=== PATIENT | male | born 1945 | race Caucasian/White ===

== ENCOUNTER 2019-03-22 07:04 | Inpatient (IN) ==
--- NOTE | 2019-03-15 13:15 | PAT Medication Instructions ---
Medication Instructions Date of Service March 15, 2019 Home Medications apixaban [Eliquis] 5 mg PO BID diltiazem HCl 300 mg PO QAM flecainide 100 mg PO Q12H ASK your prescriber and surgeon apixaban [Eliquis] 5 mg PO BID Take morning of surgery With a small sip of water, OTHERWISE NOTHING TO EAT OR DRINK AFTER MIDNIGHT: diltiazem HCl 300 mg PO QAM flecainide 100 mg PO Q12H Take evening before surgery flecainide 100 mg PO Q12H Other Notes If you have any questions please call us at [phone] or [phone] or [phone] or [phone]
--- NOTE | 2019-03-15 15:00 | Anesthesiology Consultation ---
Date of Service March 15, 2019 Assessment & Plan (1) Encounter for pre-operative examination: Note sent to nephro re: kidney function. Per response from Dr. Carroll, "Stable GFR, would proceed with surgery." Chart Review Chart Review: Acceptable Risk for Surgery and Patient seen in Pre Admission Testing Teaching & Discussion Instructed NPO after midnight before surgery, except medications with 15 cc of water. Medication instructions provided according to the PAT guidelines. ASA ASA3 Proposed Anesthesia Anesthesia Type: General Regional Regional Laterality: Right Site: Interscalene Anesthesia Line Insertion: Arterial line Risk / Benefits Reviewed With: PT / POA / Parent / Guardian, Accepts Plan and I nformed Consent Obtained History Surgery Operation Date: 03/22/19 10:05 Proposed Procedures p Right Total Shoulder Arthroplasty Arthrosurface, Biceps Tenodesis, Labral Debridement - Ba Escobar MD Height/Weight Height: 5 ft 11.5 in Weight: 85.5 kg Allergies Allergy/AdvReac Type Severity Reaction Status Date / Time No Known Allergies Allergy Verified 03/22/19 07:49 Medications Home Medications Medication Instructions Recorded Confirmed Last Taken apixaban [Eliquis] 5 mg PO BID 03/15/19 03/22/19 03/19/19 20:00 ascorbic acid (vitamin C) [Vitamin 1 g PO DAILY 03/15/19 03/22/19 03/15/19 08:00 C] astaxanthin 4 mg PO DAILY 03/15/19 03/22/19 03/15/19 08:00 cholecalciferol (vitamin D3) 2,000 unit PO DAILY 03/15/19 03/22/19 03/15/19 08:00 [Vitamin D3] coenzyme Q10 [CoQ-10] 100 mg PO DAILY 03/15/19 03/22/19 03/15/19 08:00 diltiazem HCl 300 mg PO QAM 03/15/19 03/22/19 03/22/19 07:00 flecainide 100 mg PO Q12H 03/15/19 03/22/19 03/22/19 07:00 garlic 500 mg PO DAILY 03/15/19 03/22/19 03/15/19 08:00 glucosamine-chondroitin [Osteo 2 tab PO TID 03/15/19 03/22/19 03/15/19 08:00 Bi-Flex] magnesium oxide 400 mg PO DAILY 03/15/19 03/22/19 03/15/19 08:00 multivitamin 1 tab PO DAILY 03/15/19 03/22/19 03/15/19 08:00 omega 4-yjq-dqf-fish oil [[place]-3] 1 cap PO DAILY 03/15/19 03/22/19 03/15/19 08:00 acetaminophen [Tylenol Extra 1,000 mg PO BID 03/22/19 03/22/19 03/21/19 20:00 Strength] Active Medications Generic Name Dose Route Start Last Admin Trade Name Freq PRN Reason Stop Dose Admin Sodium Chloride 1,000 mls @ 15 mls/hr 03/22/19 06:00 03/22/19 08:10 Nss 1000ml IV 03/23/19 05:59 15 mls/hr .Q24H PAVAN Administration NPO Date Last Intake of Fluids: 03/21/19 Time Last Intake of Fluids: 23:00 Date Last Intake of Solids: 03/21/19 Time Last Intake of Solids: 21:00 Past Medical History Medical History Atrial fibrillation S/P cardioversion upon discovery in 2008. Frequent PAF events noted in 2014, anticoagulation resumed. Follows with Dr. Brenda Busch/[facility] [place] [facility] Chronic kidney disease stage 3 - follows with band maker (Dr. 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 "No reason to close" per cardiology. Continues on Eliquis. Sleep apnea CPAP Exercise / Class Metabolic Activity III < 4 Walking/Shop/Light housework (denies CP or SOB with 1 FOS) Past Family History Family History Grandfather (Maternal) Family history of diabetes mellitus Father FHx: prostate cancer FHx: lung cancer heavy smoker Sister FHx: breast cancer Past Surgical History Surgical History History of cardioversion History of cataract surgery bilateral History of colonoscopy History of detached retina repair laser repair S/P arthroscopy of knee bilateral S/P inguinal hernia repair left S/P LASIK surgery Past Anesthesia History No Hx of Anesthesia Complications and No Family Hx of Anesthesia Complications History of PONV No Hx of PONV and No Hx of Motion Sickness Social History Smoking Status: Never smoker Do You Dip or Chew Tobacco: No Hx Alcohol Use: No Hx Substance Use: No substance use type: does not use Review of Systems Pt denies any recent chest pain, shortness of breath, palpitations, cough, fever or URI. Physical Exam Vital Signs Last Vital Signs Temp 36.8 C 03/22/19 07:53 Pulse 62 03/22/19 07:53 Resp 20 03/22/19 07:53 BP 160/83 H 03/22/19 07:53 Pulse Ox 97 03/22/19 07:53 BP: 136/89 P: 58bpm SPO2: 97% RA T: 98.1 F R: 18 Constitutional not obese ENMT Mouth: + dental restorations (few gold crowns); no chipped teeth and no loose t eeth Thyromental Distance: < 3.5 Finger Breadths (3) Mallampati Class: II Neck normal visual inspection, trachea midline and + facial hair (short trimmed goatee); neck extension not limited Respiratory normal respiratory effort Auscultation: lungs clear to auscultation bilaterally Cardiovascular Rate/Rhythm: regular rate, regular rhythm and + bradycardic Heart Sounds: no murmur Vessels: no carotid bruit Extremities: no edema Musculoskeletal Spine: normal cervical ROM Neurologic moves all extremities Motor/Sensory: no sensory deficit Psychiatric Orientation: alert and oriented x 3 Testing Laboratory Results 03/15/19 15:09 03/15/19 15:09 PT 10.4 Seconds (9.0-12.0) 03/15/19 15:09 INR 1.0 (0.9-1.1) 03/15/19 15:09 APTT 26.6 Seconds (21.0-31.0) 03/15/19 15:09 Hemoglobin A1c 5.4 % (4.5-5.6) 03/15/19 15:09 Urine Color Yellow 03/15/19 Unknown Urine Appearance Clear (Clear) 03/15/19 Unknown Urine pH 5.0 (4.5-7.5) 03/15/19 Unknown Ur Specific [place] 1.018 (1.000-1.030) 03/15/19 Unknown Urine Protein 2+ (Negative) H 03/15/19 Unknown Urine Glucose (UA) Negative (Negative) 03/15/19 Unknown Urine Ketones Negative (Negative) 03/15/19 Unknown Urine Nitrite Negative (Negative) 03/15/19 Unknown Ur Leukocyte Esterase Negative (Negative) 03/15/19 Unknown Urine WBC (Auto) 0 /hpf (0-5) 03/15/19 Unknown Urine RBC (Auto) 0-4 /hpf (0-4) 03/15/19 Unknown U Hyaline Cast (Auto) 0 /lpf (0-5) 03/15/19 Unknown U Epithel Cells (Auto) 0-5 /lpf (0-5) 03/15/19 Unknown Urine Bacteria (Auto) Negative (Negative) 03/15/19 Unknown Blood Type O Positive 03/15/19 15:09 Antibody Screen NEGATIVE 03/15/19 15:09 *GFR 24.[address] Carroll's office (patient's band maker), GFR STABLE, has been < 30 since at least 09/2017. Electrocardiogram Date: 01/30/19 Findings: + NSR @ (63bpm with sinus arrhythmia and 1st degree AV block) Chest X-Ray Date: 03/15/19 Findings: + NAD Echocardiogram Date: 09/10/16 EF: 55-59% No LV segmental wall motion abnormality's. Mild thickening of the anterior leaflet of the mitral valve which may explain the mass noted on the last transthoracic echocardiogram. There is no mitral valve mass, vegetation or abscess visualized. Mild mitral regurgitation is present. There is a moderate sized patent foramen ovale. There is a moderate right to left shunt through the patent foramen ovale at rest by saline contrast injection.
--- NOTE | 2019-03-15 15:33 | XRay Report ---
XR chest Pre-admission PA/Lat CLINICAL HISTORY: 73 years-old Male presenting with preoperative evaluation. TECHNIQUE: PA and lateral views of the chest were obtained. COMPARISON: None. FINDINGS: Cardiomediastinal silhouette normal. Lungs mildly hyperinflated. No focal opacity. No pleural effusio n or pneumothorax. Osseous structures normal. Upper abdomen normal. IMPRESSION: 1. No acute cardiopulmonary disease. Electronically signed by: Kevyn Thao M.D. 03/15/2019 3:31 PM
[2019-03-15 15:46] LABS: Basophils # (auto) 0.03 K/uL (0-0.2); Basophils % (auto) 0.5 %; Eosinophils # (auto) 0.14 K/uL (0-0.5); Eosinophils % (auto) 2.5 %; Hematocrit (blood only) 41.6 % (42-52); Hemoglobin 14.4 g/dL (14.0-18.0); Immature Granulocytes # (auto) 0.01 K/uL (0.00-0.02); Immature Granulocytes % (auto) 0.2 %; Lymphocytes # (auto) 1.53 K/uL (1.2-3.4); Lymphocytes % (auto) 27.7 %; Mean Corpuscular Hemoglobin 33.6 pg (25-34); Mean Corpuscular Hgb Conc 34.6 g/dL (32-36); Mean Corpuscular Volume 97.2 fL (80-100); Mean Platelet Volume 8.7 fL (7.4-10.4); Monocytes # (auto) 0.36 K/uL (0.11-0.59); Monocytes % (auto) 6.5 %; Neutrophils # (auto) 3.45 K/uL (1.4-6.5); Neutrophils % (auto) 62.6 %; Platelet Count 250 K/uL (130-400); RDW Coefficient of Variation 12.8 % (11.5-14.5); RDW Standard Deviation 44.6 fL (36.4-46.3); Red Blood Count 4.28 M/uL (4.7-6.1); White Blood Count 5.52 K/uL (4.8-10.8)
[2019-03-15 16:03] LABS: Albumin Level 3.7 gm/dl (3.4-5.0); BUN Creatinine Ratio 22.8 (10-20); Creatinine Clr Calc Pharmacy 28.8 ml/min; Est GFR (African American) 28.3; Est GFR (Non-African American) 24.4; Potassium 4.2 mmol/L (3.5-5.1)
[2019-03-15 16:06] LABS: Partial Thromboplastin Time 26.6 Seconds (21.0-31.0); Prothrombin Time 10.4 Seconds (9.0-12.0)
[2019-03-15 16:21] LABS: Appearance Urine Clear (Clear); Bacteria Urine Automated Negative (Negative); Bilirubin Urine Negative (Negative); Blood Urine Negative (Negative); Cast Urine Automated 0 /lpf (0-5); Color Urine Yellow; Epithelial Cell Urine Auto 0-5 /lpf (0-5); Glucose Urine UA Negative (Negative); Ketones Urine Negative (Negative); Leukocyte Esterase Urine Negative (Negative); Nitrite Urine Negative (Negative); Protein Urine 2+ (Negative); RBC Urine Automated 0-4 /hpf (0-4); Specific Gravity Urine 1.018 (1.000-1.030); Urobilinogen Urine Negative (Negative); WBC Urine Automated 0 /hpf (0-5)
[2019-03-17 06:50] LABS: Estimated Average Glucose 108 mg/dl; Hemoglobin A1C 5.4 % (4.5-5.6)
--- NOTE | 2019-03-21 20:08 | History and Physical Report ---
DATE OF ADMISSION: 03/22/2019 CHIEF COMPLAINT: Chronic right shoulder pain. HISTORY OF PRESENT ILLNESS: This is a 73-year-old male patient of Dr. Escobra'josey complaining of chronic right shoulder pain, longstanding, now progressively getting worse. The patient has been diagnosed with end-stage osteoarthritis per clinical and radiographic exams. The patient has failed conservative treatment and wishes to proceed with a right total shoulder arthroplasty, biceps tenodesis and labral debridement. PAST MEDICAL HISTORY: Hypertension, atrial fibrillation, history of DVT. SOCIAL HISTORY: Nonsmoker, nondrinker. PAST SURGICAL HISTORY: Cataract surgery, bilateral knee arthroscopic surgery. FAMILY HISTORY: Noncontributory. REVIEW OF SYSTEMS: Chronic right shoulder pain. Otherwise, denies any shortness of breath, chest pain, nausea, vomiting or any other joint complaints. MEDICATIONS: 1. Diltiazem 300 mg daily. 2. Flecainide 100 mg twice daily. 3. Eliquis 5 mg twice daily. 4. Osteo Bi-Flex daily. 5. Vitamin C daily. 6. CoQ10 daily. 7. Astaxanthin 4 mg daily. 8. [place]-3 fatty acids daily. 9. Vitamin D3 daily. 10. Garlic daily. ALLERGIES: No known drug allergies. PHYSICAL EXAMINATION: GENERAL: Well-developed, well-nourished 73-year-old male in no acute distress. He is alert and oriented x3 and pleasant. HEENT: Normocephalic, atraumatic. Extraocular motions are intact. Pupils are equal and reactive to light. HEART: Regular rate and rhythm, no murmurs. LUNGS: Clear. ABDOMEN: Soft, nontender, bowel sounds present. EXTREMITIES: Right shoulder passive range of motion of 140, active with pain. He has pain and crepitation with range of motion. He has atrophy. He has 4/5 strength. Neurologically and neurovascularly, he is intact in his right upper extremity. DIAGNOSES: Right shoulder end-stage osteoarthritis, biceps tendinopathy and labral tear. He has a history of hypertension, atrial fibrillation, history of a deep venous thrombosis. PLAN: The patient was advised of his diagnosis. Indications, risks, benefits, postop course have all been reviewed. The patient wished to proceed with a right total shoulder arthroplasty, biceps tenodesis and labral debridement. Necessary consent forms, preoperative testing and clearances will be obtained.
[~2019-03-22 07:04] MED LIST: ACETAMINOPHEN 500 MG TAB PO SCH; CEFAZOLIN 2000MG 2,000 MG/15 ML SYR IV SCH; CeleBREX 200 MG CAP PO SCH; FAMOTIDINE 20 MG TAB PO SCH; GABAPENTIN 300 MG CAP PO SCH; METOCLOPRAMIDE HCL 10 MG TABLET PO SCH; SODIUM CHLORIDE 0.9% 1000ML IV SCH; dexAMETHasone 4 MG TAB PO SCH
[2019-03-22] MEDS ORDERED: EPINEPHrine INJ 1 MG/ML AMP ONE (07:13)
[2019-03-22] MEDS ORDERED: ROPIVACAINE 0.5% 5 MG/ML 30 ML VIAL ONE (07:13)
[2019-03-22] MEDS ORDERED: DEXAMETHASONE SOD INJ 4 MG/ML VIAL ONE ×2 (07:14→09:33)
[2019-03-22] MEDS ORDERED: NEOSTIGMINE METHYLSULFATE 5 MG/5 ML SYR ONE (09:33)
[2019-03-22] MEDS ORDERED: ONDANSETRON INJ 2 MG/ML 2 ML VIAL ONE (09:33)
[2019-03-22] MEDS ORDERED: MIDAZOLAM HCL 1 MG/ML 2ML VIAL ONE (09:33)
[2019-03-22] MEDS ORDERED: ROCURONIUM BROMIDE 10 MG/ML 5 ML VIAL ONE ×6 (09:33→13:20)
[2019-03-22] MEDS ORDERED: LIDOCAINE HCL 2% 2 ML VIAL/AMP(20MG/ML) INFIL ONE (09:33)
[2019-03-22] MEDS ORDERED: GLYCOPYRROLATE 0.2 MG/ML VIAL ONE (09:33)
[2019-03-22] MEDS ORDERED: fentaNYL citrate 100 MCG/2 ML VIAL ONE (09:33)
[2019-03-22] MEDS ORDERED: PROPOFOL IV EMULSION 10 MG/ML 20 ML VIAL IV ONE (09:33)
--- NOTE | 2019-03-22 10:03 | History & Physical Bridge Note ---
Date of Service March 22, 2019 History & Physical Bridge Note I have examined the patient, reviewed the History & Physical and in the interval since the performance of the History & Physical I have noted the following changes of clinical significance: no changes noted
[2019-03-22] MEDS ORDERED: EpINEphrine HCL INJ 1 MG/ML 1ML SYRINGE ONE (10:38)
[2019-03-22] MEDS ORDERED: BACITRACIN INJ 50,000 UNIT VIAL ONE (10:38)
[2019-03-22] MEDS ORDERED: NALOXONE HCL 0.4 MG/1 ML VIAL/CARP IV PRN ×2 (11:44→15:39)
[2019-03-22] MEDS ORDERED: FLUMAZENIL 0.1 MG/1 ML 10 ML VIAL IV PRN (11:44)
[2019-03-22] MEDS ORDERED: HYDROmorphone INJ 1 MG/ML SYRINGE IV PRN (11:44)
[2019-03-22] MEDS ORDERED: LABETALOL HCL IV 5 MG/ML 20ML IV PRN (11:44)
[2019-03-22] MEDS ORDERED: ePHEDrine sulfate 50 MG/ML AMP IV PRN (11:44)
[2019-03-22] MEDS ORDERED: ONDANSETRON INJ 2 MG/ML 2 ML VIAL IV PRN (11:44)
[2019-03-22] MEDS ORDERED: PROMETHAZINE HCL 12.5 MG in SODIUM CHLORIDE 0.9% 50 ML IV PRN (11:44)
[2019-03-22] MEDS ORDERED: ATROPINE SULFATE 0.1 MG/ML 10ML SYR IV PRN (11:44)
[2019-03-22] MEDS ORDERED: ePHEDrine sulfate 50 MG/ML SYR ONE (12:59)
--- NOTE | 2019-03-22 14:15 | Post Operative Brief Note ---
Immediate Post Op Note v1 Date of Surgery March 22, 2019 Pre & Post Diagnosis Operation Date: 03/22/19 10:05 Pre-Op Diagnosis: Primary Osteoarthritis, Right Shoulder; Biceps Tendinopathy, and Labral Tear Post-Op Diagnosis: Primary Osteoarthritis, Right Shoulder; Biceps Tendinopathy, and Labral Tear I identified the patient and participated in the time-out.: Yes Procedure Operation Date: 03/22/19 10:05 Actual Procedures p Right Total Shoulder Arthroplasty Arthrosurface, Biceps Tenodesis, Labral De bridement(Right) - Ba Escobar MD Surgeon Ba Escobar MD Coffee Shop Manager JUNIE Myers Estimated Blood Loss 80 Findings Consistent with Post-Op Diagnosis Specimens None Drains Hemovac Drain (10fr, 400cc) Anesthesia Type General Regional Complications none Disposition Accompanied Patient To Recovery: No Disposition: Recovery Room Overlapping Procedure I was immediately available: during the entire case.
--- NOTE | 2019-03-22 15:01 | XRay Report ---
XR shoulder RT min 2V routine CLINICAL HISTORY: Post shoulder surgery COMPARISON STUDY: None. FINDINGS: Status post right humeral head resurfacing. The hardware appears intact. No fracture or dis location. Skin niranjan and surgical drains are in place. IMPRESSION: Status post right humeral head resurfacing. No evidence for hardware complication. Electronically signed by: Branden Chambers M.D. 03/22/2019 2:59 PM
--- NOTE | 2019-03-22 15:09 | Anesthesiology Progress Note ---
Date of Service March 22, 2019 Anesthesia Post Procedure Vital Signs Vital Signs: Temp Pulse Pulse Resp BP Pulse Ox 03/22/19 15:05 36.3 C L 75 21 131/77 96 03/22/19 14:55 74 21 145/81 H 97 03/22/19 14:45 81 21 134/80 96 03/22/19 14:35 72 15 146/82 H 98 03/22/19 14:28 36.1 C L 84 20 151/83 H 99 03/22/19 07:53 36.8 C 62 20 160/83 H 97 Pain Intensity Right Shoulder: Pain Intensity: 3 Transfer of Care Handoff Completed per policy Notes Mental Status: alert / awake / arousable Patient Amnestic to Procedure: Yes Nausea / Vomiting: adequately controlled Pain: adequately controlled Airway Patency, RR, SpO2: stable & adequate BP & HR: stable & adequate Hydration State: stable & adequate Anesthetic Complications: no major complications apparent
[2019-03-22] MEDS ORDERED: OXYCODONE HCL IR 5 MG TAB (IMMEDIATE RELEASE) PO PRN (15:39)
[2019-03-22] MEDS ORDERED: HYDROmorphone INJ 0.5 MG/0.5 ML SYR IV PRN (15:39)
[2019-03-22] MEDS ORDERED: bisacodyL 10 MG SUPP PR PRN (15:39)
[2019-03-22] MEDS ORDERED: MAGNESIUM HYDROXIDE SUSP 30 ML UDC PO PRN (15:39)
--- NOTE | 2019-03-22 18:24 | Hospitalist Consultation ---
Date of Consultation March 22, 2019 Assessment & Plan (1) Osteoarthritis involving joint of right upper arm: * POD #0 s/p right total shoulder arthroplasty by Dr. Escobar * PT/OT/pain management/DVT prophylaxis per primary team * EBL 80cc * Patient with right thumb numbness-- otherwise nvi-- will need to continue to monitor * Monitor CBC (2) CKD (chronic kidney disease) stage 3, GFR 30-59 ml/min: * Follows with Dr. Carroll in [place] - patient with history of congenital atrophic kidney--> cleared for surgery as he was told kidney function stable and not likely to progress to dialysis, however pre-op eGFR more indicative of CKD IV. * Preop eGFR 28.8, Creat 2.54 -- patient unsure of baseline * Monitor closely -- BMP in AM (3) Atrial fibrillation: * Hx atrial fibrillation s/p cardioversion [address] Busch at [place] * Had repeat episodes in 2014 and was re-started on anticoagulation * Continue diltiazem 300mg, flecainide 100mg BID * Continue eliquis (4) Sleep apnea: * Stable * Patient utilizes CPAP -- in room currently (5) Congenital kidney disease: * As above (6) DVT prophylaxis: * Eliquis as above * SCDs Thank you for asking hospitalist service to assist with medical management of Mr. Villa. Medicine will follow along. Supervising Physician Co-Signing Physician Notes Attending Consult Note & Attestation: Pt seen/examined, chart reviewed, care plan d/w JUNIE Rubio. I agree w/ the velasco components of her documentation. 73yo male with h/o PAF, h/o DVT, CKD stage 3/4, PFO - presented for elective right shoulder replacement today by Dr Escobar. Surgery went well by report. I saw him on orthopedic floor during my visit. He was resting comfortably. Only complaint was that of right 1st/2nd digit numbness that started post-op. No cp, no dyspnea, no abd pain. Tolerated dinner. PMH, PSH, allergies, meds, sochx, famhx, ros - reviewed BPs mildly elevated; o/w VSS gen - NAD mouth - MMM neck - no JVD heart - RRR, s1 s2, no murmur lungs - CTA b/l abd - mildly distended; BS+, NT ext - right shoulder in large dressing and sling; ankles w/o edema neuro - right handgrip 5/5 pre-op labs - Cr 2.5 A/P: 1. s/p right total shoulder replacement 2. h/o PAF 3. h/o provoked DVT 4. CKD stage 3/4 5. h/o retinal detachment BMP am monitor HR and serial exams for post-op PAF agree w/ resumption of eliquis tonight follow BPs Jose Lee MD History of Present Illness Reason for Consultation: Medical Management Requesting Physician: Dr. Escobar Attending Physician: Ba Escobar MD History of Present Illness 73-year-old white male with PMH significant for atrial fibrillation (s/p ablation ~7 years ago at [facility]), PFO, sleep apnea, CKD III, congenital kidney disease, DVT, OA presented for right total shoulder arthroplasty by Dr. Escobar after failed outpatient treatment. Patient states he is not having any pain currently, but confirms he did just get back from the recovery room. He does admit to some right thumb numbness on the lateral aspect which is not present in his other fingers and was not present prior to surgery. He states he is able to move all of his fingers without difficult and has good literacy tutor strength. Patient states he had a cardioversion at [facility] by Dr. Busch, approximately 7-8 years ago, for atrial fibrillation and has been in NSR since that time, "99.9% of the time". He did have PAF in 2014 and was restarted on Eliquis at that time. He continues to be on flecainide 100mg twice daily as well as diltiazem 300mg nightly in addition to Eliquis. He states when he was in afib, he could feel palpitations and was short of breath. He denies either of those symptoms currently. He also has a PFO that he was told did not require any intervention. Per ECHO scanned in from 2017, moderated sized patent foramen ovale. 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 PCP is Dr. Lennon and he follows a printing screen assembler, Dr. Carroll from [place], for "congenital kidney disease" but is unsure what it is. Per notes, "unilateral congenital renal atrophy" with confirmation by anesthesiology and documentation from printing screen assembler that patient GFR stable and to proceed with surgery. Patient is unsure what his baseline creatinine is but states that he was told by his printing screen assembler that his kidney function was stable and would not likely progress to needing dialysis. He states he has a history of sleep apnea and has been utilizing his CPAP nightly, and is present in room currently. Patient denies any fevers, chills, melena or hematochezia but does state he has had an unintentional ~12 pound weight loss since the summer, which he attributes to not being able to lift as many weights due to recent increased shoulder pain. He does state that he stopped all of his over the counter medications 2 weeks ago and only continues to take eliquis, fleccaide and diltiazem. Most recent EKG 01/30/19 -- NSR with sinus arrhythmia with 1st degree AV block, no change from Sep 2018 EKG. TTE 09/10/16 from [facility] shows LVEF 55-59%, with mild thickening of anterior leaflet of mitral valve, mild mitral regurgitation. Moderate R-->L shunt through PFO. Allergies Allergy/AdvReac Type Severity Reaction Status Date / Time No Known Allergies Allergy Verified 03/22/19 07:49 Home Medications Home Medications Medication Instructions Recorded Confirmed Type apixaban [Eliquis] 5 mg PO BID 03/15/19 03/22/19 History ascorbic acid (vitamin C) [Vitamin 1 g PO DAILY 03/15/19 03/22/19 History C] astaxanthin 4 mg PO DAILY 03/15/19 03/22/19 History cholecalciferol (vitamin D3) 2,000 unit PO DAILY 03/15/19 03/22/19 History [Vitamin D3] coenzyme Q10 [CoQ-10] 100 mg PO DAILY 03/15/19 03/22/19 History diltiazem HCl 300 mg PO QAM 03/15/19 03/22/19 History flecainide 100 mg PO Q12H 03/15/19 03/22/19 History garlic 500 mg PO DAILY 03/15/19 03/22/19 History glucosamine-chondroitin [Osteo 2 tab PO TID 03/15/19 03/22/19 History Bi-Flex] magnesium oxide 400 mg PO DAILY 03/15/19 03/22/19 History multivitamin 1 tab PO DAILY 03/15/19 03/22/19 History omega 4-qdl-xue-fish oil [[place]-3] 1 cap PO DAILY 03/15/19 03/22/19 History acetaminophen [Tylenol Extra 1,000 mg PO BID 03/22/19 03/22/19 History Strength] Patient History Medical History (Updated 03/22/19 @ 18:19 by Aidee Rubio PA-C) Atrial fibrillation S/P cardioversion upon discovery in 2008. Frequent PAF events noted in 2014, anticoagulation resumed. Follows with Dr. Brenda Busch/[facility] Chronic kidney disease stage 3 - follows with printing screen assembler (Dr. 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 "No reason to close" per cardiology. Continues on Eliquis. Sleep apnea CPAP Surgical History History of cardioversion History of cataract surgery bilateral History of colonoscopy History of detached retina repair laser repair S/P arthroscopy of knee bilateral S/P inguinal hernia repair left S/P LASIK surgery Family History (Updated 03/22/19 @ 18:08 by Aidee Rubio PA-C) Grandfather (Maternal) Family history of diabetes mellitus Father FHx: prostate cancer FHx: lung cancer heavy smoker Sister FHx: breast cancer Mother , in her 40s from MVA, otherwise healthy No problems noted. Social History Preferred Language: Croatian Communication Ability: Effective Premix Operator Concentrate Required: No Beliefs That Will Affect Care: None Current Living Situation: Significant Other Other Information That Helps Us Care for You: No Feels Safe at Home: Yes Safety Concerns: Feels Safe At This Time Smoking Status: Never smoker Do You Dip or Chew Tobacco: No ; Second Hand Exposure: Yes (as a child) ; Tobacco Cessation Education Requested by Patient: No Hx Alcohol Use: No Hx Substance Use: No Review of Systems Constitutional: no fever and no chills Eyes: no diplopia and not seeing flashes Ear, Nose, Mouth, Throat: no sore throat and no dysphagia dry mouth Respiratory: no cough and no dyspnea Cardiovascular: no chest pain, no palpitations and no edema Gastrointestinal: no abdominal pain, no nausea, no vomiting, no constipation and no diarrhea/loose stools Genitourinary: no dysuria and no hematuria Musculoskeletal: no back pain, no neck pain and no body aches Integumentary: no rash and no lesions Neurologic: + numbness (right thumb); no headache(s) and no confusion Physical Exam Constitutional: WD/WN, vitals as above Eyes: PERRL, conjunctivae normal, anicteric sclerae ENMT: posterior erythema of oropharynx, cobblestoned appearance Neck: trachea midline, no thyromegaly Respiratory: normal respiratory effort, lungs clear to auscultation Cardiovascular: Rate/Rhythm: regular rate and regular rhythm Heart Sounds: normal S1, normal S2 and + murmur Gastrointestinal (Abdomen): normal bowel sounds, soft, nontender, no hepatosplenomegaly Musculoskeletal: no cyanosis or clubbing, extremities motor strength 5/5 Neurologic: PERRL, EOMI, accommodation nl, no face palsy, no dysarthria decreased sensation to light touch, two point discrimination right thumb, lateral aspect Psychiatric: A+Ox3, euthymic affect Lymphatic: no cervical or axillary lymphadenopathy Results & Data Vital Signs (Past 12 Hours) Vital Signs Temp Pulse Pulse Pulse Resp BP Pulse Ox 03/22/19 17:26 36.6 C 77 16 160/83 H 94 03/22/19 16:32 36.6 C 74 16 138/77 93 03/22/19 16:00 36.4 C L 74 18 152/74 H 92 03/22/19 15:20 36.3 C L 69 18 133/75 97 03/22/19 15:05 36.3 C L 75 21 131/77 96 03/22/19 14:55 74 21 145/81 H 97 03/22/19 14:45 81 21 134/80 96 03/22/19 14:35 72 15 146/82 H 98 03/22/19 14:28 36.1 C L 84 20 151/83 H 99 03/22/19 07:53 36.8 C 62 20 160/83 H 97 PG Care Time/CCT Total # of Minutes Spent Total Time Spent with Patient: Total time spent is greater than 50% in coordination of care (as documented) at patient's floor/unit and/or counseling patient:
[2019-03-22] MEDS: SODIUM CHLORIDE 0.9% 1000ML 1,000 ML IV SCH (18:33)
--- NOTE | 2019-03-22 18:51 | Operative Report ---
DATE OF OPERATION: 03/22/2019 INDICATION FOR PROCEDURE: The patient is a 73-year-old male who is athletic, active individual. 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 Now has a [id number] in glenohumeral joint. 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 MRI demonstrates intact rotator cuff. He does have a likely SLAP tear and biceps tendinopathy. PREOPERATIVE DIAGNOSES: End-stage right shoulder osteoarthritis and biceps tendinopathy and glenoid labral tear. POSTOPERATIVE DIAGNOSES: End-stage right shoulder osteoarthritis and biceps tendinopathy and glenoid labral tear. PROCEDURE: Right total shoulder arthroplasty using OVOMotion Arthrosurface, humeral head resurfacing with inlay glenoid components. Biceps tenodesis and labral debridement. SURGEON: Ba Escobar MD [employer] [employer] DIRECTOR: Michael Wilkins PA-C. ANESTHESIA: Regional block and general. ESTIMATED BLOOD LOSS: 80 mL. COMPLICATIONS: None. DRAINS: Two Hemovacs. OPERATIVE PROCEDURE: The patient was taken to the operating room, anesthetized under regional block and general anesthetic. He was positioned on a 40-degree beachchair position on the operating room table. A towel roll was placed under the medial border of his right scapula. A foam headrest was placed. Protective eyewear was placed. SCDs were placed. His extremities were all padded. The arm was draped free, so we could do full range of motion as needed. The patient had normal range of motion of his shoulder and glenohumeral crepitation. I used the Arthrosurface OVOMotion shoulder replacement system with an inlay glenoid component. The approach was performed after the shoulder was sterilely prepped and draped with ChloraPrep. The anterior deltopectoral approach was performed via longitudinal incision. Skin was incised sharply. Subcutaneous flaps were elevated. The cephalic vein was dissected out and retracted laterally with the deltoid. Pectoralis retracted medially. The upper 1 centimeter of the pectoralis was released for inferior exposure. The conjoined tendon was dissected out and on the lateral aspect of the conjoined tendon and strap muscles and the bursa over the subscapularis was resected developing the plane between the conjoined tendon and the subscapularis tendon. There was large synovitis collection coming out of the rotator interval overlapping the subscapularis somewhat. This was resected. The rotator interval was opened up. The incision was carried down to the glenoid. The rotator cuff was inspected and otherwise was intact. Biceps had marked tendinopathy with chronic tenosynovitis communicated with the glenohumeral joint. Biceps tendon itself was intact. The chronic tenosynovitis around the biceps was all resected. The circumflex vessels were tied off with silk ties. The subscapularis tendon was then taken down leaving a cm cuff of tissue on the lesser tuberosity with a transtendinous incision. I placed a blunt retractor between the inferior capsule and the axillary nerve to protect that. The traction suture was placed with #1 Vicryl into the end of the subscapularis tendon and capsule. The blunt Hohmann retractor was placed inside the joint and his shoulder was gradually externally rotated, the large inferior osteophytes were revealed. An artist chisel was used as well as rongeur to remove the osteophytes. The lateral inferior and posterior osteophytes were removed. The humeral head was eburnated bone with all central region being down to bone. The humeral head was then sized. The sizing guides were used and a 52 superior inferior diameter implant with a medial lateral diameter of 48 mm was used. The central drill hole was made into the head followed by the reamer to the appropriate depth. The secondary humeral head reamer was used and all debris and osteophytes around the edge of the prepared humeral head was removed. The humeral head was then retracted posterior to the glenoid. The biceps was released superiorly and the degenerative labrum was resected with a scalpel. I did an anterior inferior release on the glenoid, releasing the capsule and Bankart-type retractor was placed anteriorly. The glenoid was eburnated bone, some posterior bone loss, there was a mild B2 type shape to the glenoid. The remaining cartilage anteriorly was removed with a curette. There is a slight ridge that was smoothed down with a bur. With a normal curved glenoid surface now created the guide for the glenoid component was placed. The guide pin was drilled into the glenoid, centering the guide in the central to inferior aspect of the glenoid to get good coverage. The reamers were placed to the appropriate depth. The drill for the central peg was used and this was slightly open with an awl to have further cement fixation. A trial was placed and the trial fit well at the appropriate depth and then the several drill holes were made for cement fixation. The glenoid was copiously irrigated with antibiotic solution and bacitracin and then packed with epinephrine soaked sponges and the Palacos G cement was vacuum mixed. The 19 x 20 mm articular glenoid component was then cemented in position. The cement was pressurized 3 times onto the face of the glenoid into the holes and then dried and then cement was placed on the back of the implant. The suction device was used to hold the articular implant, the articular implant was placed in position and then impacted and excess cement was removed and it was held in position until cement cured. The attention was then taken to the remainder of the humeral component. After further irrigation, the trial was placed over the humeral head. Appropriate drill was performed to the appropriate depth and the appropriate depth was assessed with the trial component. Then the wound was copiously irrigated and then the tapered post was screwed in position to the appropriate depth. At this time, the OVOMotion Arthrosurface 52 x 48 humeral component was impacted onto the Aguiar taper of the post with an excellent press fit. Assisted with a Olivas elevator it was stable. Then, the humerus was reduced to the glenoid and after further copious irrigation, the subscapularis was repaired with medial row fixation with 5.5 mm Healicoil suture anchors with 2 and 3 Ultrabraid sutures. The inferior Healicoil anchor had 2 sutures which were placed in horizontal mattress fashion. The upper anchor with 3 sutures, 2 sutures were placed in horizontal mattress fashion and one of the third suture was placed 1 medial and 1 lateral through the cuff of tissue still on the lesser tuberosity. Sutures were all tied with surgeon's knots. The tails of the sutures 4 tails 1 from each tied, the suture from the anchor were placed into superior and inferior 5.5 mm footprint anchors, which were placed in the bicipital groove area. This created compression across the repair. Further 2-0 FiberWire sutures were used to complete the repair including the rotator interval which was repaired anatomically. The sutures were left attached to the footprint anchors and these were used to perform the biceps tenodesis. The bone was curetted in the bicipital groove. The biceps tendon was laid down on its normal length, two whipstitch and two single sutures were placed from the 2 respective anchors with good fixation of the biceps tendon. The pectoralis tendon was closed with [id number] #2 FiberWire suture. The shoulder was taken through range of motion. The patient had 140 degrees of forward elevation, 100 degrees abduction, 75 degrees of external rotation without any tension on the repair, it was solid subscapularis repair. After copious irrigation, the Hemovac drains were placed out laterally, one deep to the deltoid, one deep to the conjoined tendon. I did note that there was some tearing of the cephalic vein that was bleeding, so we tied this off with silk ties. The deltopectoral interval was repaired with [id number] #1 Vicryl sutures. The subcutaneous tissue was closed with 2-0 Vicryl sutures, skin closed with niranjan. Sterile dressings were applied and a sling immobilizer. JUNIE Myers was my assistant distribution manager and functioned as assistant distribution manager for the entire procedure. He assisted in patient positioning, arm positioning, prepping, draping, soft tissue retraction, instrument management as needed and performed subcutaneous and skin closure and will participate in postoperative care of the patient. I attest to the content of the Intraoperative Record and any orders documented therein. Any exception s are noted below.
[2019-03-22] MEDS: CEFAZOLIN 2000MG 2,000 MG/15 ML SYR IV SCH (18:55)
[2019-03-22] MEDS: DOCUSATE SODIUM 100 MG CAP PO SCH (20:10)
[2019-03-22] MEDS: ASPIRIN 81 MG ECTAB PO SCH (20:10)
[2019-03-22] MEDS: FLECAINIDE ACETATE 100 MG TABLET PO SCH (20:11)
[2019-03-22] MEDS ORDERED: SENNA 8.6 MG TAB PO SCH (21:00)
[2019-03-22] MEDS: ACETAMINOPHEN 500 MG TAB PO SCH (22:12)
[2019-03-23] MEDS: CEFAZOLIN 2000MG 2,000 MG/15 ML SYR IV SCH (01:40)
[2019-03-23] MEDS: SODIUM CHLORIDE 0.9% 1000ML 1,000 ML IV SCH (01:43)
[2019-03-23] MEDS: ACETAMINOPHEN 500 MG TAB PO SCH (05:29)
[2019-03-23 05:48] LABS: Hematocrit (blood only) 36.1 % (42-52); Hemoglobin 12.6 g/dL (14.0-18.0); Immature Granulocytes # (auto) 0.02 K/uL (0.00-0.02); Immature Granulocytes % (auto) 0.2 %; Lymphocytes # (auto) 0.44 K/uL (1.2-3.4); Lymphocytes % (auto) 4.1 %; Mean Corpuscular Hemoglobin 34.2 pg (25-34); Mean Corpuscular Hgb Conc 34.9 g/dL (32-36); Mean Corpuscular Volume 98.1 fL (80-100); Mean Platelet Volume 8.5 fL (7.4-10.4); Monocytes # (auto) 0.31 K/uL (0.11-0.59); Monocytes % (auto) 2.9 %; Neutrophils # (auto) 10.08 K/uL (1.4-6.5); Neutrophils % (auto) 92.8 %; Platelet Count 197 K/uL (130-400); RDW Coefficient of Variation 12.9 % (11.5-14.5); RDW Standard Deviation 45.8 fL (36.4-46.3); Red Blood Count 3.68 M/uL (4.7-6.1); White Blood Count 10.85 K/uL (4.8-10.8)
[2019-03-23 06:17] LABS: BUN Creatinine Ratio 15.4 (10-20); Calcium 8.4 mg/dl (8.5-10.1); Creatinine Clr Calc Pharmacy 30.2 ml/min; Est GFR (African American) 29.9; Est GFR (Non-African American) 25.8; Potassium 4.6 mmol/L (3.5-5.1)
[2019-03-23] MEDS: ASPIRIN 81 MG ECTAB PO SCH (08:09)
[2019-03-23] MEDS: FLECAINIDE ACETATE 100 MG TABLET PO SCH (08:09)
[2019-03-23] MEDS: DOCUSATE SODIUM 100 MG CAP PO SCH (08:10)
--- NOTE | 2019-03-23 08:11 | Orthopedic Progress Note ---
Date of Service March 23, 2019 Assessment & Plan (1) Osteoarthritis involving joint of right upper arm: POD #1 Right TSA, Biceps Tenodesis PT/ OT DVT proph- ASA D/C planning- Home w OPPT today. Appreciate medicine input. Subjective POD #1, Doing well. Denies SOB, CP, N/V. Pain controlled well. Plans home w OPPT. Physical Exam Physical Exam: Right shoulder dressings/ drain c/d/i. Fingers mobile, sling in tact. N/V+. A&Ox3. Results & Data Vital Signs (Past 12 Hours) Vital Signs Temp Pulse Resp BP Pulse Ox 03/23/19 07:51 37.1 C 73 17 132/72 95 03/23/19 03:45 36.7 C 78 16 112/67 95 03/23/19 00:07 36.8 C 84 18 115/68 94 03/22/19 21:52 36.7 C 95 H 17 126/69 93
[2019-03-23] MEDS ORDERED: ASCORBIC ACID 500 MG TAB PO SCH (09:00)
[2019-03-23] MEDS ORDERED: CHOLECALCIFEROL 1,000 UNITS TAB PO SCH (09:00)
[2019-03-23] MEDS ORDERED: dilTIAZem HCL 300 MG CAPCR PO SCH (09:00)
[2019-03-23] MEDS ORDERED: MAGNESIUM OXIDE 400 MG TAB PO SCH (09:00)
[2019-03-23] MEDS ORDERED: MULTIVITAMIN TAB PO SCH ×2 (09:00)
[2019-03-23] MEDS ORDERED: ASTAXANTHIN PO SCH (09:00)
--- NOTE | 2019-03-23 14:22 | Anesthesiology Progress Note ---
Date of Service March 23, 2019 Anesthesia Post Procedure Vital Signs Vital Signs: Temp Pulse Pulse Pulse Resp BP Pulse Ox 03/23/19 11:18 36.7 C 68 17 153/91 H 98 03/23/19 07:51 37.1 C 73 17 132/72 95 03/23/19 03:45 36.7 C 78 16 112/67 95 03/23/19 00:07 36.8 C 84 18 115/68 94 03/22/19 21:52 36.7 C 95 H 17 126/69 93 03/22/19 18:02 36.7 C 89 16 162/86 H 91 03/22/19 17:26 36.6 C 77 16 160/83 H 94 03/22/19 16:32 36.6 C 74 16 138/77 93 03/22/19 16:00 36.4 C L 74 18 152/74 H 92 03/22/19 15:20 36.3 C L 69 18 133/75 97 03/22/19 15:05 36.3 C L 75 21 131/77 96 03/22/19 14:55 74 21 145/81 H 97 03/22/19 14:45 81 21 134/80 96 03/22/19 14:35 72 15 146/82 H 98 03/22/19 14:28 36.1 C L 84 20 151/83 H 99 Pain Intensity Right Shoulder: Pain Intensity: 3 Notes Mental Status: alert / awake / arousable and participated in evaluation Patient Amnestic to Procedure: Yes Nausea / Vomiting: adequately controlled Pain: adequately controlled Airway Patency, RR, SpO2: stable & adequate BP & HR: stable & adequate Hydration State: stable & adequate Anesthetic Complications: no major complications apparent and Pt Satisfied with anesthetic care
[2019-03-23] MEDS ORDERED: APIXABAN 5 MG TABLET PO SCH (21:00)
== END 2019-03-23 13:10 | disposition home or self-care (01) | DRG 483 ==
LOC: ASU 07:04 → 3E 14:34

== ENCOUNTER 2023-02-24 11:03 | Observation (INO) ==
--- NOTE | 2023-01-20 09:05 | PAT Medication Instructions ---
Medication Instructions Date of Service January 20, 2023 Home Medications apixaban 5 mg tablet (Eliquis) 5 mg PO BID ascorbic acid (vitamin C) 1,000 mg tablet (Vitamin C) 1 g PO BID coenzyme Q10 100 mg capsule (CoQ-10) 100 mg PO QAM flecainide 100 mg tablet 100 mg PO Q12H garlic 500 mg capsule 500 mg PO DAILY magnesium oxide 800 mg PO HS multivitamin 1 tab PO QAM omega 3 350 mg-dha 235 mg-epa 90 mg-fish oil 597 mg capsule,delay rel (Ophiem-3) 1 cap PO TID diltiazem HCl 180 mg capsule,24 hr,extended release 180 mg PO QAM ASK your prescriber and surgeon apixaban 5 mg tablet (Eliquis) 5 mg PO BID STOP taking 2 weeks before surgery (or as soon as possible if surgery is within 2 weeks) coenzyme Q10 100 mg capsule (CoQ-10) 100 mg PO QAM garlic 500 mg capsule 500 mg PO DAILY omega 3 350 mg-dha 235 mg-epa 90 mg-fish oil 597 mg capsule,delay rel (Ophiem-3) 1 cap PO TID DO NOT take the morning of surgery ascorbic acid (vitamin C) 1,000 mg tablet (Vitamin C) 1 g PO BID multivitamin 1 tab PO QAM Take morning of surgery With a small sip of water, OTHERWISE NOTHING TO EAT OR DRINK AFTER MIDNIGHT: flecainide 100 mg tablet 100 mg PO Q12H diltiazem HCl 180 mg capsule,24 hr,extended release 180 mg PO QAM Take evening before surgery ascorbic acid (vitamin C) 1,000 mg tablet (Vitamin C) 1 g PO BID flecainide 100 mg tablet 100 mg PO Q12H magnesium oxide 800 mg PO HS Other Notes If you have any questions please call us at [phone] or [phone] or [phone] or [phone]
--- NOTE | 2023-02-04 16:09 | Anesthesiology Consultation ---
Date of Service February 04, 2023 Assessment & Plan (1) Encounter for pre-operative examination: Chart Review Chart Review: Acceptable Risk for Surgery (pending cardio clearance, PCP clearance and response from PCP re: kidney function ) and Patient seen in Pre Admission Testing - Awaiting cardiac clearance 02/16/23 (LEVON Alexandro) - Awaiting PCP clearance (Johnnie Lennon PA-C- [place])- done 02/02/23 - Please send optimization note to PCP re: kidney function- will need response Hx of phrenic nerve injury with ablation in 2020- symptoms have improved but patient does NOT want PNB - Patient is NOT an OPJ candidate Per PAT appt on 02/04/23, no recent illness/disease exposures, illness related symptoms, or recent illness/disease positive tests. Will leave to surgeon's discretion if preop Covid testing needed Right total shoulder arthroplasty Arthrosurface, Biceps Tenodesis, Labral Debridement(Right) 03/22/2019 = done under [facility] with grade 2 view (cricoid pressure to improve view) with MAC #3. ETT #8.0. Atraumatic. Moderately difficult DVL x1. Teaching & Discussion Pre-Anesthesia Teaching/Discussion Notes: Instructed NPO after midnight before surgery,except medications with 15 cc of water. Medication instructions provided according to the PAT guidelines. History Surgery Operation Date: 02/24/23 12:45 Proposed Procedures p Left Total Shoulder Arthroplasty - Ba Escobar MD Height/Weight Height: 5 ft 11.5 in Weight: 83.915 kg Allergies Allergy/AdvReac Type Severity Reaction Status Date / Time No Known Allergies Allergy Verified 01/15/23 14:43 Medications Home Medications Medication Instructions Recorded Confirmed Last Taken apixaban 5 mg tablet (Eliquis) 5 mg PO BID 03/15/19 01/15/23 03/19/19 20:00 ascorbic acid (vitamin C) 1,000 mg 1 g PO BID 03/15/19 01/15/23 03/15/19 08:00 tablet (Vitamin C) coenzyme Q10 100 mg capsule 100 mg PO QAM 03/15/19 01/15/23 03/15/19 08:00 (CoQ-10) flecainide 100 mg tablet 100 mg PO Q12H 03/15/19 01/15/23 03/22/19 07:00 garlic 500 mg capsule 500 mg PO DAILY 03/15/19 01/15/23 03/15/19 08:00 magnesium oxide 800 mg PO HS 03/15/19 01/15/23 03/15/19 08:00 multivitamin 1 tab PO QAM 03/15/19 01/15/23 03/15/19 08:00 omega 3 350 mg-dha 235 mg-epa 90 1 cap PO TID 03/15/19 01/15/23 03/15/19 08:00 mg-fish oil 597 mg capsule,delay rel ([place]-3) diltiazem HCl 180 mg capsule,24 180 mg PO QAM 01/15/23 01/15/23 Unknown hr,extended release Past Medical History Medical History Atrial fibrillation Hx cardioversion (Dec 2022); s/p ablation (2021) Follows with Dr. 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 Continues on [facility]. Sleep apnea CPAP Stage 4 chronic kidney disease "stable" follows with bank appraiser (Dr. Carroll/[facility]) No history of dialysis Exercise / Class Metabolic Activity II 4-5 Yardwork/Stairs/Walk up hill (one flight of stairs - no chest pain or SOB; sprints (wind sprints- 60 yards uphill) 3x weekly) Past Family History Family History Grandfather (Maternal) Family history of diabetes mellitus Father FHx: prostate cancer FHx: lung cancer heavy smoker Sister FHx: breast cancer Mother , in her 40s from MVA, otherwise healthy No problems noted. Past Surgical History Surgical History History of arthroplasty of right shoulder Right TSA, biceps tendonesis, labral debridement (03/22/19): Grade 2 view, MAC#3, ETT 8.0 ("atraumatic. mod. difficult DVL") + PNB at [facility] [place] History of cardiac radiofrequency ablation 03/2021 at [facility] (d/t Amanuela) History of cardioversion x2 in 11/2022 [facility], 10+ years ago History of cataract surgery R/L History of colonoscopy History of detached retina repair laser repair S/P arthroscopy of knee R/L S/P inguinal hernia repair left S/P LASIK surgery Past Anesthesia History No Hx of Anesthesia Complications and No Family Hx of Anesthesia Complications History of PONV No Hx of PONV (remote history of PONV 40 years ago- no issues since ) and No Hx of Motion Sickness Social History Smoking Status: Never smoker Do You Dip or Chew Tobacco: No Hx Alcohol Use: No Hx Substance Use: No substance use type: does not use Review of Systems Patient denies chest pain, shortness of breath, dyspnea on exertion, reflux, cough, wheezing, palpitations. No hx of seizures, stroke, [place]. No hx of blood transfusions Physical Exam Vital Signs VITALS BP 145/79 (usually 120s systolically) P 59 TEMP 97.8 SP02 97% RESP 16 Constitutional no acute distress ENMT Mouth: + small oral opening; no TMJ clicking Thyromental Distance: > or= 3.5 Finger Breadths (3.5) Mallampati Class: III Caps vs crowns molars Neck + limited neck extension (mild) Respiratory normal respiratory effort; no respiratory distress Auscultation: lungs clear to auscultation bilaterally; no wheezes Cardiovascular Rate/Rhythm: regular rate and regular rhythm Heart Sounds: no murmur Vessels: no carotid bruit Musculoskeletal Spine: no pain with cervical ROM Extremities: extremities normal to inspection Psychiatric Orientation: alert Lab Results Anesthesia Preop Results Results Anesthesia Widget: WBC 5.46 K/ul (4.8-10.8) 02/04/23 Hgb 13.1 g/dl (14.0-18.0) L 02/04/23 Hct 37.9 % (42.0-52.0) L 02/04/23 Plt 199 K/uL (130-400) 02/04/23 Na 141 mmol/L (136-145) 02/04/23 K 4.5 mmol/L (3.5-5.1) 02/04/23 Cl 108 mmol/L (98-107) H 02/04/23 CO2 27 mmol/L (21-32) 02/04/23 BUN 62 mg/dl (6-23) H 02/04/23 Creat 2.76 mg/dl (0.6-1.4) H 02/04/23 Glucose Level 95 mg/dl (70-99(Fasting)) 02/04/23 PT 11.1 Seconds (9.0-12.0) 02/04/23 PTT 28.2 Seconds (21.0-31.0) 02/04/23 INR 1.0 (0.9-1.1) 02/04/23 Urine Color Yellow 02/04/23 Urine Appearance Clear (Clear) 02/04/23 Urine pH 5.5 (4.5-7.5) 02/04/23 Urine Specific [place] 1.013 (1.000-1.030) 02/04/23 Urine Protein 1+ (Negative) H 02/04/23 Urine Glucose (UA) Negative (Negative) 02/04/23 Urine Ketones Negative (Negative) 02/04/23 Urine Blood Negative (Negative) 02/04/23 Urine Nitrite Negative (Negative) 02/04/23 Urine Bilirubin Negative (Negative) 02/04/23 Urine Urobilinogen Negative (Negative) 02/04/23 Urine Leukocyte Esterase Negative (Negative) 02/04/23 Urine WBC (Auto) 0 /hpf (0-5) 02/04/23 Urine RBC (Auto) 0-4 /hpf (0-4) 02/04/23 Urine Hyaline Casts (Auto) 0 /lpf (0-5) 02/04/23 Urine Epithelial Cells (Auto) 0-5 /lpf (0-5) 02/04/23 Urine Bacteria (Auto) Negative (Negative) 02/04/23 Blood Type O Positive 02/04/23 Antibody Screen NEGATIVE 02/04/23 Testing Laboratory Results Elevated creatinine- CKD Stage IV- will send a note to PCP to ensure stable Electrocardiogram Date: 02/04/23 SB with 1st degree AVB at 56bpm Otherwise normal EKG per cardio Chest X-Ray Date: 02/04/23 Findings: + NAD FINDINGS: No pneumothorax. No pleural effusions. The lungs are clear. The heart is normal in size. No acute fractures identified. Partially visualized right shoulder prosthesis is noted. Echocardiogram Date: 03/07/21 EF: 55-59% LV Function: normal RWMA: + none Other Findings: + diastolic dysfunction (Grade 1) RV cavity is mildly dilated. RV systolic function is qualitatively normal Left atrium moderately enlarged. Mild MR Moderate TR No pericardial effusion is noted. IVC is not well-visualized and right atrial pressure cannot be estimated No evidence of atrial septal defect but resolution does not allow assessment for PFO. No ventral septal defect
--- NOTE | 2023-02-22 17:44 | History & Physical Report ---
Date of Service February 22, 2023 Assessment & Plan (1) Primary osteoarthritis, left shoulder: Plan: Treatment options discussed with patient. He has failed conservative measures and would like to proceed with surgical intervention. Risks, benefits and alternatives to surgery including but not limited to infection, DVT, pain, stiffness, need for revision surgery, damage to blood vessels, damage to nerves, PE, , were discussed with the patient and they wish to proceed. Plan on left total shoulder arthroplasty with Arthrosurface OVO motion system. Surgery scheduled for 02/24/23 at [facility] with Dr. Escobar. All questions answered. Patient will f/u post op. History of Present Illness Chief Complaint: Left shoulder pain Primary Care Provider: Jose Lennon MD 77yo male with PMHx significant for CKD4, phrenic nerve injury, PFO, NEIL, a-fib who presents with ongoing left shoulder pain. Pain is interfering with his daily activity. He has failed conservatifve measures and would like to proceed with surgical intervention. Patient denies headaches, sweats, fevers, chills, double vision, blurred vision, cough, sore throat, dysphagia, chest pain, sob, wheezing, n/v/d/c, numbness, tingling, fatigue, urinary symptoms, mood disorders. ROS positive for left shoulder pain and stiffness. Allergies Allergy/AdvReac Type Severity Reaction Status Date / Time No Known Allergies Allergy Verified 01/15/23 14:43 Home Medications Medication Instructions Recorded Confirmed Type apixaban 5 mg tablet (Eliquis) 5 mg PO BID 03/15/19 01/15/23 History ascorbic acid (vitamin C) 1,000 mg 1 g PO BID 03/15/19 01/15/23 History tablet (Vitamin C) coenzyme Q10 100 mg capsule 100 mg PO QAM 03/15/19 01/15/23 History (CoQ-10) flecainide 100 mg tablet 100 mg PO Q12H 03/15/19 01/15/23 History garlic 500 mg capsule 500 mg PO DAILY 03/15/19 01/15/23 History magnesium oxide 800 mg PO HS 03/15/19 01/15/23 History multivitamin 1 tab PO QAM 03/15/19 01/15/23 History omega 3 350 mg-dha 235 mg-epa 90 1 cap PO TID 03/15/19 01/15/23 History mg-fish oil 597 mg capsule,delay rel ([place]-3) diltiazem HCl 180 mg capsule,24 180 mg PO QAM 01/15/23 01/15/23 History hr,extended release Past Med/Surg History Medical History Atrial fibrillation Hx cardioversion (Dec 2022); s/p ablation (2021) Follows with Dr. 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 Continues on Eliquis. Sleep apnea CPAP Stage 4 chronic kidney disease "stable" follows with ecologist technician (Dr. Carroll/[facility]) No history of dialysis Surgical History History of arthroplasty of right shoulder Right TSA, biceps tendonesis, labral debridement (03/22/19): Grade 2 view, MAC#3, ETT 8.0 ("atraumatic. mod. difficult DVL") + PNB at [facility] History of cardiac radiofrequency ablation 03/2021 at [facility] (d/t A.fib) History of cardioversion x2 in 11/2022 [facility], 10+ years ago History of cataract surgery R/L History of colonoscopy History of detached retina repair laser repair S/P arthroscopy of knee R/L S/P inguinal hernia repair left S/P LASIK surgery Family History Grandfather (Maternal) Family history of diabetes mellitus Father FHx: prostate cancer FHx: lung cancer heavy smoker Sister FHx: breast cancer Mother , in her 40s from MVA, otherwise healthy No problems noted. Social History Smoking Status: Never smoker Second Hand Exposure: Yes (as a child); Do You Dip or Chew Tobacco: No; Hx Alcohol Use: No Hx Substance Use: No Preferred Language: [place] Citizen Communication Ability: Effective Medical Technologist Clinical Required: No Beliefs That Will Affect Care: None Current Living Situation: Significant Other Feels Safe at Home: Yes Assistive Devices: CPAP Review of Systems All systems reviewed & are unremarkable except as noted in HPI & below Physical Exam Constitutional: well developed and well nourished; no acute distress Eyes: PERRL, conjunctivae normal, anicteric sclerae ENMT: external ear and nose normal, oropharynx normal Neck: trachea midline, no thyromegaly Respiratory: normal respiratory effort, lungs clear to auscultation Cardiovascular: RRR, no murmur, no edema Musculoskeletal: Left shoulder: Tenderness anterior glenoid, lateral arm. Pain end range of motion. bone on bone crepitation with resisted abduction. FF to 160 degrees, abduction to 100 degrees actively. Skin: no rashes, warm and dry Neurologic: patellar DTR's 2+ bilat, sensation intact Psychiatric: A+Ox3, euthymic affect Results & Data Diagnostic Findings Left shoulder radiographs demonstrate endstage osteoarthritis. Patient is bone on bone glenohumeral joint with posterior glenoid wear and posteror subluxation.
[~2023-02-24 11:03] MED LIST changes: +BUPIVACAINE 0.5 % 5 MG/1 ML PF 10ML VIAL ONE; -CEFAZOLIN 2000MG 2,000 MG/15 ML SYR IV SCH; +LR 60ML/HR IV SCH; +TRANEXAMIC ACID 1,000 MG **IV Intra-op IV SCH; +TRANEXAMIC ACID 1,000 MG **IV Pre-op IV SCH; +ceFAZolin 2000MG 2,000 MG/15 ML SYR IV SCH
[2023-02-24] MEDS ORDERED: LABETALOL HCL IV 5 MG/ML 20ML IV PRN (12:04)
[2023-02-24] MEDS ORDERED: fentaNYL citrate PF 100 MCG/2 ML VIAL ONE (12:04)
[2023-02-24] MEDS ORDERED: MIDAZOLAM HCL 1 MG/ML 2ML VIAL ONE (12:04)
[2023-02-24] MEDS ORDERED: PROMETHAZINE HCL 12.5 MG in SODIUM CHLORIDE 0.9% 50 ML IV PRN (12:04)
[2023-02-24] MEDS ORDERED: PROPOFOL IV EMULSION 10 MG/ML 20 ML VIAL IV ONE (12:04)
[2023-02-24] MEDS ORDERED: ROCURONIUM BROMIDE 10 MG/ML 5 ML VIAL IV ONE ×2 (12:04→14:08)
[2023-02-24] MEDS ORDERED: ATROPINE SULFATE 0.1 MG/ML 10ML SYR IV PRN (12:04)
[2023-02-24] MEDS ORDERED: DEXAMETHASONE SOD INJ 4 MG/ML VIAL ONE (12:04)
[2023-02-24] MEDS ORDERED: ONDANSETRON INJ 2 MG/ML 2 ML VIAL IV PRN ×2 (12:04→20:02)
[2023-02-24] MEDS ORDERED: LIDOCAINE 2% 2 ML VIAL/AMP(20MG/ML) INFIL ONE (12:04)
[2023-02-24] MEDS ORDERED: ONDANSETRON INJ 2 MG/ML 2 ML VIAL ONE (12:04)
--- NOTE | 2023-02-24 13:16 | History & Physical Bridge Note ---
Date of Service February 24, 2023 History & Physical Bridge Note I have examined the patient, reviewed the History & Physical and in the interval since the performance of the History & Physical I have noted the following changes of clinical significance: no changes noted
[2023-02-24] MEDS ORDERED: EpINEphrine HCL INJ 1 MG/ML 1ML SYRINGE ONE (13:27)
[2023-02-24] MEDS ORDERED: ePHEDrine sulfate 50 MG/5 ML SYR ONE (14:16)
[2023-02-24] MEDS ORDERED: HYDROmorphone INJ 2 MG/ML SYR/VIAL ONE (14:37)
[2023-02-24] MEDS ORDERED: GLYCOPYRROLATE 0.2 MG/ML VIAL ONE (14:54)
[2023-02-24] MEDS ORDERED: SUGAMMADEX SODIUM 200 MG/2 ML VIAL IV ONE (16:29)
[2023-02-24] MEDS ORDERED: BUPIVACAINE/EPINEPHRINE 0.5% MPF 1:200,000 30 ML VIAL ONE (16:47)
[2023-02-24] MEDS ORDERED: BUPIVACAINE 0.5 % 5 MG/1 ML MPF 30ML VIAL ONE (16:50)
--- NOTE | 2023-02-24 17:32 | Operative Report ---
Post Operative Report Pre & Post Diagnosis Operation Date: 02/24/23 12:55 Pre-Op Diagnosis: Primary osteoarthritis, left shoulder Post-Op Diagnosis: Primary osteoarthritis, left shoulder I identified the patient and participated in the time-out.: Yes Procedure Operation Date: 02/24/23 12:55 Actual Procedures p Left Total Shoulder Arthroplasty, Left Shoulder open Biceps Tenodesis(Left) - Ba Escobar MD Surgeon Ba Escobar MD Brake Operator Rashard ZAMAN Estimated Blood Loss 40 Findings Consistent with Post-Op Diagnosis Specimens None Drains 1 Hemovac Anesthesia Type General Complications none Disposition Disposition: Recovery Room Indications 77-year-old active male with progressive pain and disability due to end-stage glenohumeral osteoarthritis with grade 4 osteoarthritic changes. MRI also demonstrates marked inflammation around the biceps tendon with chronic tenosynovitis of the biceps. Radiographs demonstrate type A wear pattern with symmetrical wear. Description of Procedure Patient was placed placed under general anesthetic. Regional block was not performed due to history prior old phrenic nerve injury from another procedure. The left upper extremity had a towel roll placed on the medial border of the scapula and translated to the side of the bed so it could be manipulated off of the bed as necessary. A foam headrest was placed and protective eyewear was placed. Lower extremities were well-padded. Patient was positioned in a beach chair position approximately 40 degrees. Shoulder exam demonstrated 40 degrees external rotation, 85 degrees internal rotation, 160 degrees forward flexion,[id number] crepitation. The left upper extremity was prepped and draped in sterile fashion. A deltopectoral approach was performed with a longitudinal incision in a deltopectoral interval. The skin was incised sharply and the subcutaneous flaps were elevated. The cephalic vein was dissected out and retracted laterally with the deltoid. The clavipectoral fascia was divided at the lateral margin of the conjoined tendon and extended up to the CA ligament. A self-retaining retractor was placed. Biceps findings demonstrated marked biceps tenosynovitis extending from the pectoralis tendon up to the bicipital groove. Kirti synovectomy was performed removing all the inflamed tissue and the biceps tendon was marked at the upper edge of the pectoralis tendon to reproduced the length of the tendon for later tenodesis. The circumflex vessels were tied off with silk ties. The subscapularis muscle fibers were at the level of the circumflex vessels dissection was taken down to the capsule and a Kitner elevator was used to release the inferior fibers of the capsule protecting the axillary nerve inferiorly. A blunt Hohmann retractors were placed between the inferior located axillary nerve and the capsule. This was verified with a tug test. The rotator was opened up and exte nded down to the glenoid. The subscapularis was taken down with a transtendinous incision leaving a cuff of tissue for repair on the lesser tuberosity. The incision was carried through the subscapularis to the capsule and then subperiosteally along the inferior capsule exposing the inferior humeral osteophytes. These demonstrated osteophytes moderate in size along the inferior aspect.. The osteophytes were resected with an artist chisel and rongeur. The humeral head findings demonstrated concentric wear some bone loss no flattening of the head but complete eburnation of the bone with no articular cartilage remaining. After the osteophytes were resected humeral head is retracted posterior to the glenoid with a Fukuda retractor. The glenoid findings demonstrated a crescent shaped of worn articular cartilage still present in the anterior aspect of the glenoid which was about 15 to 20% of the glenoid and 80% was eburnated bone but no B2 type wear with normal shape to the glenoid. There was degenerative tearing of the labrum. The labrum was resected maintaining the posterior capsular attachment and the biceps tendon released off the superior labrum. . A 360 degree release of the subscapularis was performed. I performed anterior and anterior inferior release for exposure but no posterior release about the glenoid. Subperiosteal release with electrocautery on the glenoid anterior and inferior and also utilizing a small Olivas elevator to perform that release. Upon completion of the releases the humeral head was reexposed with retractors and humeral head was sized for a size 52 x 48 mm Arthrosurface OVO motion humeral head. The central guidepin was placed. The threaded stop for the reamer was drilled into the head. This was placed at the appropriate depth. The head reamer was used. All debris was irrigated out of the joint. The flat head resection reamer was used. The remaining section of bone was removed with a saw. The humerus was then retracted posteriorly again with the Fukuda retractor posterior to the glenoid. The guide for the glenoid component was placed and the guide pin was advanced to the appropriate depth. Glenoid reamers were utilized. The depth gauge verified the depth of the reaming. The drill hole for the central post was placed. Trial component was placed at satisfactory position and depth. Trial was removed and the glenoid reamed area was prepared for cementing with several drill holes placed around the reamed area to accept cement. After further irrigation the reamed area was packed with epinephrine soaked tampon sponges. The [place] cement was vacuum mixed. The cement was injected into the glenoid and compressed with a finger compression device. More cement was placed on the back of the glenoid component and it was inserted into the reamed area in appropriate position with the suction device that held onto the component. When the component was appropriate seating position the suction was removed as well as a suction device and direct pressure was placed on of the component and excess cement was cleared and the component was held in position until the cement fully cured. The component was 19 x 20 mm single glenoid 1.5 offset polyethylene. Attention was taken back to the humerus. The humeral head guide was placed onto the humeral head in the appropriate position. The guidepin was readvanced in position. The drill was used for the central post hole. The 12 mm tapered post was inserted to appropriate depth with excellent fixation. Depth checking device was utilized. Insertion device was removed. Two Berumen [employer] Nephew peek 5.5 Helicoil suture anchors were placed for medial row fixation of the subscapularis and the superior and inferior aspect of the bone medial to the subscapularis footprint. Anchors held well in the hard bone with good fixation. After copious irrigation the Aguiar taper of the tapered post was dried and then the humeral component size 52 x 48 was impacted onto the taper post with stable fixation. This was assessed with a Olivas elevator to be stable. This was then reduced to the glenoid. The sutures from the medial anchors were passed in horizontal mattress fashion through the subscapularis tendon and tied down repairing the subscapularis tendon anatomically. Two #2 FiberWire [id number] sutures were utilized to assure apposition between the cuff of t issue of the subscapularis and the medial subscapularis tissue as well. Then lateral row fixation was then performed with 4 sutures placed into superior and inferior Berumne [employer] Nephew 5.5 mm peek footprint anchors placed in the bicipital groove which was debrided and curetted first to have appropriate environment for the biceps tenodesis. Crisscross compression was obtained with good fixation. The biceps tendon was laid down in the groove at the appropriate length into the bicipital groove and the sutures from the footprint anchor were passed using a free needle using a whipstitch and simple suture from each anchor through the biceps tendon tied with surgeons knots and the excess biceps was resected proximally and this was very stable fixation with passive range of motion of the elbow. The rotator interval was repaired with [id number] #2 FiberWire sutures . Range of motion was assessed demonstrating 50% translation posterior with stress with good reduction back into the normal position of the glenoid and stable range of motion. Without any tension on subscap repair through 60 degrees of external rotation 90 degrees of abduction and 145 degrees of forward flexion. The wound was copiously irrigated and 2 Hemovac drains were placed brought out laterally. The deltopectoral interval was repaired with [id number] #1 Vicryl sutures and the subcutaneous tissues were closed into 2-0 Vicryl sutures and skin closed with niranjan and sterile dressings were applied and a shoulder immobilizer. The patient tolerated the procedure well. Rashard ZAMAN my physician advertising assistant manager assisted in the procedure with arm positioning soft tissue retraction instrument management suture management and performed the subcutaneous and skin closure dressings and shoulder immobilizer application and will participate in the postop care the patient. I attest to the content of the Intraoperative Record and any orders documented therein. Any exceptions are noted below.
--- NOTE | 2023-02-24 17:41 | XRay Report ---
XR shoulder LT min 2V routine HISTORY: 77 years-old Male Post shoulder surgery left shoulder arthroplasty COMPARISON: Chest radiograph 02/04/2023 TECHNIQUE: 2 views of the left shoulder FINDINGS: Left shoulder arthroplasty. Overlying skin niranjan are noted with expected postoperative soft tissue swelling and deep tissue air. Surgical drainage catheter. IMPRESSION: Left shoulder arthroplasty with expected postoperative changes. ACT 112: Negative or not required by law. The above report was generated using voice recognition software. It may contain grammatical, syntax o r spelling errors. Electronically signed by: Clemente Payne M.D. 02/24/2023 5:40 PM
[2023-02-24] MEDS: HYDROmorphone INJ 1 MG/ML SYRINGE IV PRN ×3 (17:50→18:05)
[2023-02-24] MEDS ORDERED: hydrALAZINE HCL 20 MG/ML VIAL IV ONE (18:10)
[2023-02-24] MEDS ORDERED: hydrALAZINE HCL 20 MG/ML VIAL ONE (18:11)
--- NOTE | 2023-02-24 18:35 | Anesthesiology Progress Note ---
Date of Service February 24, 2023 Anesthesia Post Procedure Vital Signs Vital Signs: Temp Pulse Pulse Resp BP Pulse Ox O2 Del Method 02/24/23 18:30 65 17 165/103 H 95 Nasal Cannula 02/24/23 18:20 73 15 151/108 H 97 Nasal Cannula 02/24/23 18:10 66 13 168/103 H 98 Oxymask 02/24/23 18:00 70 19 176/109 H 95 Oxymask 02/24/23 17:50 76 12 176/103 H 99 Oxymask 02/24/23 17:40 77 12 170/109 H 92 Oxymask 02/24/23 17:31 97.0 F L 78 15 170/104 H 98 Oxymask 02/24/23 11:40 97.7 F 55 L 20 164/89 H 96 Room Air, CPAP O2 Flow Rate 02/24/23 18:30 4 02/24/23 18:20 4 02/24/23 18:10 5 02/24/23 18:00 5 02/24/23 17:50 5 02/24/23 17:40 5 02/24/23 17:31 5 02/24/23 11:40 Pain Intensity Left Shoulder: Pain Intensity: 4 Transfer of Care Handoff Completed per policy Notes Mental Status: alert / awake / arousable and participated in evaluation Patient Amnestic to Procedure: Yes Nausea / Vomiting: adequately controlled Pain: adequately controlled Airway Patency, RR, SpO2: stable & adequate BP & HR: stable & adequate Hydration State: stable & adequate Anesthetic Complications: no major complications apparent and Pt Satisfied with anesthetic care
[2023-02-24] MEDS ORDERED: HYDROmorphone INJ 0.5 MG/0.5 ML SYR IV PRN (20:02)
[2023-02-24] MEDS ORDERED: METOCLOPRAMIDE HCL INJ 5 MG/ML 2 ML VIAL IV PRN (20:02)
[2023-02-24] MEDS ORDERED: SODIUM CHLORIDE 0.9% 1,000 ML IV SCH (20:02)
[2023-02-24] MEDS ORDERED: oxyCODONE HCL IR 5 MG TAB (IMMEDIATE RELEASE) PO PRN (20:02)
[2023-02-24] MEDS ORDERED: TAMSULOSIN HCL 0.4 MG CAP PO PRN (20:02)
[2023-02-24] MEDS ORDERED: NALOXONE HCL 0.4 MG/1 ML VIAL/CARP IV PRN (20:02)
[2023-02-24] MEDS ORDERED: MAGNESIUM HYDROXIDE SUSP 30 ML UDC PO PRN (20:02)
[2023-02-24] MEDS ORDERED: bisacodyL 10 MG SUPP PR PRN (20:02)
[2023-02-24] MEDS ORDERED: MAGNESIUM OXIDE 400 MG TAB PO SCH (21:00)
[2023-02-24] MEDS ORDERED: SENNA 8.6 MG TAB PO SCH (21:00)
[2023-02-24] MEDS: ACETAMINOPHEN 500 MG TAB PO SCH (21:08)
[2023-02-24] MEDS: DOCUSATE SODIUM 100 MG CAP PO SCH (21:08)
[2023-02-24] MEDS: FLECAINIDE ACETATE 100 MG TABLET PO SCH (21:09)
[2023-02-24] MEDS: ceFAZolin 2000MG 2,000 MG/15 ML SYR IV SCH (21:09)
[2023-02-24] MEDS: ASCORBIC ACID 500 MG TAB PO SCH (21:09)
--- NOTE | 2023-02-24 21:41 | Consultation ---
Date of Consultation February 24, 2023 Assessment & Plan (1) Primary osteoarthritis, left shoulder: 77-year-old male with past medical significant for paroxysmal atrial fibrillation, PFO, history of retinal neovascularization right side, left branch retinal artery occlusion, acute idiopathic pericarditis, chronic kidney disease stage IV, obstructive sleep apnea, s/p left shoulder total arthroplasty. Osteoarthritis left shoulder S/p left total shoulder arthroplasty Management as per orthopedics History of paroxysmal defibrillation On flecainide and diltiazem and Eliquis History of sleep apnea Patient on CPAP but states he want to try oxygen tonight CKD stage IV Baseline creatinine around 2.5 We will follow labs DVT prophylaxis and disposition as per orthopedics History of Present Illness Reason for Consultation: S/p left total shoulder arthroplasty Attending Physician: Ba Escobar MD History of Present Illness 77-year-old male with past medical significant for paroxysmal atrial fibrillation, PFO, history of retinal neovascularization right side, left branch retinal artery occlusion, acute idiopathic pericarditis, chronic kidney disease stage IV, obstructive sleep apnea, s/p left shoulder total arthroplasty. Tolerated procedure okay. Has mild pain at the surgical site. Denies headaches. No blurred visions. No earache or runny nose. No sore throat. No cough. Appetite is okay. Denies any chest pain or shortness of breath. No nausea. Currently resting comfortably and hemodynamically stable. Past medical history. As mentioned above. Past surgical history. Colonoscopy. Ophthalmoscopy. Bilateral knee arthroscopy. Right shoulder replacement. Carpal tunnel surgery. Cataract surgery. Laser retinopexy. Social history. No smoking. Alcohol socially. No drug use. Family history. Father had lung cancer. Sister has breast cancer. Paternal grandfather had diabetes. Allergies Allergy/AdvReac Type Severity Reaction Status Date / Time No Known Allergies Allergy Verified 02/24/23 11:36 Home Medications Medication Instructions Recorded Confirmed Type apixaban 5 mg tablet (Eliquis) 5 mg PO BID 03/15/19 02/24/23 History ascorbic acid (vitamin C) 1,000 mg 1 g PO BID 03/15/19 02/24/23 History tablet (Vitamin C) coenzyme Q10 100 mg capsule 100 mg PO QAM 03/15/19 02/24/23 History (CoQ-10) flecainide 100 mg tablet 100 mg PO Q12H 03/15/19 02/24/23 History garlic 500 mg capsule 500 mg PO DAILY 03/15/19 02/24/23 History magnesium oxide 800 mg PO HS 03/15/19 02/24/23 History multivitamin 1 tab PO QAM 03/15/19 02/24/23 History omega 3 350 mg-dha 235 mg-epa 90 1 cap PO TID 03/15/19 02/24/23 History mg-fish oil 597 mg capsule,delay rel ([place]-3) diltiazem HCl 180 mg capsule,24 180 mg PO QAM 01/15/23 02/24/23 History hr,extended release acetaminophen 500 mg tablet 1,300 mg PO Q6H PRN Pain 02/24/23 02/24/23 History acetaminophen 500 mg tablet 1,000 mg (2 x 500 mg) PO Q8 #60 02/25/23 Rx (Tylenol Extra Strength) tabs oxycodone 5 mg tablet 5 - 10 mg (1 - 2 x 5 mg) PO 02/25/23 Rx .Q4h-6h PRN pain #30 tabs Patient History Medical History Atrial fibrillation Hx cardioversion (Dec 2022); s/p ablation (2021) Follows with Dr. 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 Continues on Eliquis. 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 Carroll/[facility]) No history of dialysis Surgical History History of arthroplasty of right shoulder Right TSA, biceps tendonesis, labral debridement (03/22/19): Grade 2 view, MAC#3, ETT 8.0 ("atraumatic. mod. difficult DVL") + PNB at [facility] History of cardiac radiofrequency ablation 03/2021 at [facility] (d/t Nolberto) History of cardioversion x2 in 11/2022 [facility], 10+ years ago History of cataract surgery R/L History of colonoscopy History of detached retina repair laser repair S/P arthroscopy of knee R/L S/P inguinal hernia repair left S/P LASIK surgery Family History Grandfather (Maternal) Family history of diabetes mellitus Father FHx: prostate cancer FHx: lung cancer heavy smoker Sister FHx: breast cancer Mother , in her 40s from MVA, otherwise healthy No problems noted. Social History Smoking Status: Never smoker Second Hand Exposure: Yes (as a child); Do You Dip or Chew Tobacco: No; Tobacco Cessation Education Requested by Patient: No Hx Alcohol Use: No Hx Substance Use: No Preferred Language: Kiswahili Communication Ability: Effective Finish Molder Required: No Beliefs That Will Affect Care: None Current Living Situation: Significant Other Other Information That Helps Us Care for You: No Feels Safe at Home: Yes Safety Concerns: Feels Safe At This Time Assistive Devices: CPAP Review of Systems Review of Systems: All systems reviewed & are unremarkable except as noted in HPI & below Physical Exam Physical Exam: General- Not in distress Head- atraumatic Neck- supple, no JVD. Lungs- clear to auscultation and percussion Heart- regular rhythm; no murmur, no gallop. Abdomen- normal bowel sounds, soft, nontender, no distension. Extremities- s/left total shoulder arthroplasty. Dressing and drain intact.IN sling Neuro- alert, oriented no facial palsy; no dysarthria; moves extremities except left upper extremity which is in sling. Skin- warm & dry Results & Data Vital Signs (Past 12 Hours) Vital Signs Temp Pulse Pulse Resp BP Pulse Ox O2 Del Method 02/24/23 20:32 36.8 C 83 18 151/97 H 93 Room Air 02/24/23 20:02 36.8 C 70 18 153/88 H 96 Room Air 02/24/23 19:33 36.8 C 78 16 153/88 H 98 Room Air 02/24/23 19:00 36.4 C L 66 10 L 147/88 H 97 Nasal Cannula 02/24/23 18:40 36.4 C L 72 13 163/88 H 99 Nasal Cannula 02/24/23 18:30 65 17 165/103 H 95 Nasal Cannula 02/24/23 18:20 73 15 151/108 H 97 Nasal Cannula 02/24/23 18:10 66 13 168/103 H 98 Oxymask 02/24/23 18:00 70 19 176/109 H 95 Oxymask 02/24/23 17:50 76 12 176/103 H 99 Oxymask 02/24/23 17:40 77 12 170/109 H 92 Oxymask 02/24/23 17:31 36.1 C L 78 15 170/104 H 98 Oxymask 02/24/23 11:40 36.5 C 55 L 20 164/89 H 96 Room Air, CPAP O2 Flow Rate 02/24/23 20:32 02/24/23 20:02 02/24/23 19:33 02/24/23 19:00 3 02/24/23 18:40 3 02/24/23 18:30 4 02/24/23 18:20 4 02/24/23 18:10 5 02/24/23 18:00 5 02/24/23 17:50 5 02/24/23 17:40 5 02/24/23 17:31 5 02/24/23 11:40 Diagnostic Findings Impressions Shoulder X-Ray 02/24/23 17:23 XR shoulder LT min 2V routine HISTORY: 77 years-old Male Post shoulder surgery left shoulder arthroplasty COMPARISON: Chest radiograph 02/04/2023 TECHNIQUE: 2 views of the left shoulder FINDINGS: Left shoulder arthroplasty. Overlying skin niranjan are noted with expected postoperative soft tissue swelling and deep tissue air. Surgical drainage catheter. IMPRESSION: Left shoulder arthroplasty with expected postoperative changes. ACT 112: Negative or not required by law. The above report was generated using voice recognition software. It may contain grammatical, syntax or spelling errors. Electronically signed by: Clemente Payne M.D. 02/24/2023 5:40 PM
[2023-02-25] MEDS: ceFAZolin 2000MG 2,000 MG/15 ML SYR IV SCH (05:00)
[2023-02-25] MEDS: ACETAMINOPHEN 500 MG TAB PO SCH (05:00)
[2023-02-25] MEDS: ASCORBIC ACID 500 MG TAB PO SCH (07:50)
[2023-02-25] MEDS: FLECAINIDE ACETATE 100 MG TABLET PO SCH (07:50)
[2023-02-25] MEDS: DOCUSATE SODIUM 100 MG CAP PO SCH (07:50)
--- NOTE | 2023-02-25 07:56 | Orthopedic Progress Note ---
Date of Service February 25, 2023 Assessment & Plan (1) Primary osteoarthritis, left shoulder: Plan: Postop day #1 left total shoulder arthroplasty, biceps tenodesis -PT/OT: Follow TSA protocol. No active shoulder motion. -DVT prophylaxis: SCDs, resume home Eliquis this evening. -Pain management as written -A.m. labs are pending -Discharge planning: Plan on discharge home today as long as he continues to remain stable after therapy. Admission and Anticipated Discharge Date Admission Date: February 24, 2023 Subjective Patient is postop day #1 left total shoulder arthroplasty. He is doing well this morning. Pain is controlled. No current complaints. Denies chest pain, shortness of breath, nausea/vomiting/diarrhea, headaches or dizziness. Review of Systems Review of Systems: All systems reviewed & are unremarkable except as noted in Subjective Physical Exam Physical Exam: Left shoulder: Sling is in place. Dressing is clean, dry, intact. Fingers are mobile with good wrist extension. Good corsetier strength. Distally neurovascular status and sensation is grossly intact. Constitutional: WD/WN, vitals as above Results & Data Vital Signs (Past 12 Hours) Vital Signs Temp Pulse Resp BP Pulse Ox O2 Del Method O2 Flow Rate 02/25/23 07:26 36.5 C 82 17 130/76 94 Room Air 02/25/23 07:18 36.6 C 84 14 147/80 H 94 Room Air 02/25/23 04:00 36.6 C 72 18 127/76 97 Nasal Cannula 3 02/24/23 22:32 36.7 C 83 18 133/84 97 Nasal Cannula 3 02/24/23 21:32 36.4 C L 81 18 146/70 H 94 Room Air 02/24/23 20:32 36.8 C 83 18 151/97 H 93 Room Air 02/24/23 20:02 36.8 C 70 18 153/88 H 96 Room Air
[2023-02-25 08:38] LABS: Hematocrit (blood only) 33.6 % (42.0-52.0); Hemoglobin 11.5 g/dl (14.0-18.0); Mean Corpuscular Hemoglobin 33.3 pg (25.0-34.0); Mean Corpuscular Hgb Conc 34.2 g/dL (32.0-36.0); Mean Corpuscular Volume 97.4 fL (80.0-100.0); Platelet Count 175 K/uL (130-400); RDW Coefficient of Variation 12.5 % (11.5-14.5); RDW Standard Deviation 44.3 fL (36.4-46.3); Red Blood Count 3.45 M/uL (4.70-6.10); White Blood Count 9.27 K/ul (4.8-10.8)
[2023-02-25 08:56] LABS: BUN Creatinine Ratio 20.3 (10-20); Calcium 8.3 mg/dl (8.6-10.3); Creatinine Clr Calc Pharmacy 29.1 ml/min; Est GFR (African American) 29.9 ml/min; Est GFR (Non-African American) 25.8 ml/min; Potassium 4.7 mmol/L (3.5-5.1)
[2023-02-25] MEDS ORDERED: NON-FORMULARY MEDICATION (Multivitamin Tablet) PO SCH (09:00)
[2023-02-25] MEDS ORDERED: MULTIVITAMIN TAB PO SCH (09:00)
[2023-02-25] MEDS ORDERED: dilTIAZem HCL 180 MG CAPCR PO SCH (09:00)
[2023-02-25 09:18] LABS: Basophils # (auto) 0.01 K/uL (0.00-0.20); Basophils % (auto) 0.1 %; Immature Granulocytes # (auto) 0.02 K/uL (0.01-0.20); Immature Granulocytes % (auto) 0.2 %; Lymphocytes # (auto) 0.34 K/uL (1.20-3.40); Lymphocytes % (auto) 3.7 %; Monocytes # (auto) 0.24 K/uL (0.11-0.59); Monocytes % (auto) 2.6 %; Neutrophils # (auto) 8.66 K/uL (1.40-6.50); Neutrophils % (auto) 93.4 %
--- NOTE | 2023-02-25 11:55 | Discharge Summary ---
Date of Service February 25, 2023 Admission HPI Per Admitting Provider 77yo male with PMHx significant for CKD4, phrenic nerve injury, PFO, NEIL, a-fib who presents with ongoing left shoulder pain. Pain is interfering with his daily activity. He has failed conservatifve measures and would like to proceed with surgical intervention. Patient denies headaches, sweats, fevers, chills, double vision, blurred vision, cough, sore throat, dysphagia, chest pain, sob, wheezing, n/v/d/c, numbness, tingling, fatigue, urinary symptoms, mood disorders. ROS positive for left shoulder pain and stiffness. Admission Exam Per Admitting Provider Constitutional: well developed and well nourished; no acute distress Eyes: PERRL, conjunctivae normal, anicteric sclerae ENMT: external ear and nose normal, oropharynx normal Neck: trachea midline, no thyromegaly Respiratory: normal respiratory effort, lungs clear to auscultation Cardiovascular: RRR, no murmur, no edema Musculoskeletal: Left shoulder: Tenderness anterior glenoid, lateral arm. Pain end range of motion. bone on bone crepitation with resisted abduction. FF to 160 degrees, abduction to 100 degrees actively. Skin: no rashes, warm and dry Neurologic: patellar DTR's 2+ bilat, sensation intact Psychiatric: A+Ox3, euthymic affect Principal Diagnosis Left shoulder osteoarthritis Discharge Exam Left shoulder: Sling is in place. Dressing is clean, dry, intact. Fingers are mobile with good wrist extension. Good casework manager strength. Distally neurovascular status and sensation is grossly intact. Constitutional WD/WN, vitals as above Discharge Data Allergies Allergy/AdvReac Type Severity Reaction Status Date / Time No Known Allergies Allergy Verified 02/24/23 11:36 Consultations 02/19/23 15:39 Consult Hospitalist Routine Procedures Performed Operation Date: 02/24/23 12:55 Actual Procedures p Left Total Shoulder Arthroplasty, Left Shoulder Bicep Tenodesis(Left) - Ba Escobar MD Ordered Studies 02/24/23 05:00 US - OR guided needle placemen Routine Hospital Course (1) Primary osteoarthritis, left shoulder: Postop day #1 left total shoulder arthroplasty, biceps tenodesis -PT/OT: Follow TSA protocol. No active shoulder motion. -DVT prophylaxis: SCDs, resume home Eliquis this evening. -Pain management as written -A.m. labs are pending -Discharge planning: Plan on discharge home today as long as he continues to remain stable after therapy. Labs reviewed and demonstrate hgb of 11.5 from 13 preop acute blood loss anemia due to surgical loss vs dilutional. Patient asymptomatic. Creatinine is at baseline. Total Time Total Time Spent Total Time Spent (In Minutes): 20 Discharge Plan Discharge Items Patient Disposition: Home - Self-Care Reason For Visit: POST OP Discharge Diagnosis: Left shoulder osteoarthritis Activity: Per Instructions section Non-emergency contact: Surgeon Call non-emergency contact if: you have any medication questions, your pain is not controlled, your pain is concerning for you, you have a fever, your temperature is above 101, your wound has increased redness and your wound has increased drainage Follow-up/Referrals: Jose Lennon MD [Primary Care Provider] - Diet: Regular Addtl Attending Provider Instructions: ACTIVITY RECOMMENDATIONS: SELF CARE INSTRUCTIONS AFTER TOTAL SHOULDER ARTHROPLASTY A. You may do daily exercises as taught in physical therapy while in hospital. No lifting with the operative arm. Please schedule your outpatient physical therapy appointment to begin within 2-3 days after leaving the hospital. Specific restrictions will be written on your physical therapy prescription that is provided to you. B. You are to wear your sling/immobilizer at all times EXCEPT when performing your daily exercises, participating in physical therapy and for hygiene purposes. C. You may perform dry, daily dressing changes. Please keep your incision covered. You may shower 48 hours after surgery. Do not apply soap or any ointment/lotions directly over incision. Do not soak incision in bath tub/swimming pool. D. You may use ice as needed to operative shoulder. SPECIAL CARE INSTRUCTIONS: VERY IMPORTANT TO READ AND REVIEW A. There are a few signs you need to watch for after you are home. Call [facility] at [phone] if you experience any of the followin. Increased severe shoulder pain. Some pain is expected especially when you exercise. 2. Increased swelling in you shoulder or arm; pain or swelling in either upper extremity. 3. Any fluid drainage from the incision. 4. Shortness of breath or chest pain. B. Please call [facility] at [phone] if you have any questions or concerns about your operation or recovery. C. Call your physician if: 1. Temperature is greater than 101 degrees (F). 2. Pain is not relieved by prescribed pain medications. 3. Increase drainage or redness from incision. 4. Unanswered questions or concerns. FOLLOW UP VISIT: Please call [facility] at [phone] to schedule a follow up appointment with Dr. Escobar or his PA in 12-14 days from your surgery date. Stand-Alone Forms: My [facility], Smoking Cessation Medications and DC Order Prescriptions: New acetaminophen [Tylenol Extra Strength] 500 mg Tablet 1,000 mg PO Q8 Qty: 60 0RF oxycodone 5 mg Tablet 5 - 10 mg PO .Q4h-6h MDD 6 PRN (Reason: pain) Qty: 30 0RF Rx Instructions: Ongoing therapy, Dr. Escobar supervised Continued flecainide 100 mg Tablet 100 mg PO Q12H Eliquis 5 mg Tablet 5 mg PO BID multivitamin Tablet 1 tab PO QAM ascorbic acid (vitamin C) [Vitamin C] 1,000 mg Tablet 1 g PO BID coenzyme Q10 [CoQ-10] 100 mg Capsule 100 mg PO QAM garlic 500 mg Capsule 500 mg PO DAILY [place]-3 350 mg-235 mg- 90 mg-597 mg Capsule,Delayed Release(Dr/Ec) 1 cap PO TID magnesium oxide 400 mg magnesium Tablet 800 mg PO HS diltiazem HCl 180 mg Capsule,Extended Release 24 Hr 180 mg PO QAM Discontinued acetaminophen [Tylenol Ex Str Arthritis Pain] 500 mg Tablet 1,300 mg PO Q6H PRN (Reason: Pain) Discharge Orders: Discharge Order (Routine); Ordered 02/25/23 Ordered By: Rashard Capellan/Other Patient Handouts: Total Shoulder Replacement Surgery, Shoulder Replacement Surg Recovery Admission Data Admit Date/Time: 02/24/23 17:23 Attending Provider: Ba Escobar Admit Provider: Ba Escobar Primary Care Provider: Jose Lennon Other Providers: Treasure Nice; Alonso Figueroa Other Interventions: Discharge Summary Assessment (RN) Last Done: 02/25/23 10:08
--- NOTE | 2023-02-25 12:21 | Hospitalist Progress Note ---
Date of Service February 25, 2023 Assessment & Plan (1) Primary osteoarthritis, left shoulder: Plan: 77-year-old male with past medical significant for paroxysmal atrial fibrillation, PFO, history of retinal neovascularization right side, left branch retinal artery occlusion, acute idiopathic pericarditis, chronic kidney disease stage IV, obstructive sleep apnea, s/p left shoulder total arthroplasty. Osteoarthritis left shoulder S/p left total shoulder arthroplasty by Dr. Escobar on 02/24/2023 Postoperative acute blood loss anemia Continue sling Pain control Needs follow-up with orthopedics upon discharge Bowel regimen to prevent constipation No indication for blood transfusion currently Monitor CBC H/O Paroxysmal Atrial fibrillation Continue flecainide and diltiazem Resume Eliquis H/O sleep apnea CPAP HS CKD stage IV Cr at baseline Monitor renal function Avoid nephrotoxic agents as able DVT Px: As per orthopedics Resume Eliquis as able Disposition Advised to follow-up with PCP in 1 week Admission and Anticipated Discharge Date Admission Date: February 24, 2023 Subjective Patient is seen and examined at bedside. States having left shoulder pain at surgical site but controlled Denies any chest pain, dyspnea, dizziness, nausea, vomiting No other complaints plan to discharge home today Review of Systems Review of Systems: All systems reviewed & are unremarkable except as noted in Subjective Physical Exam Physical Exam: Physical Exam: Vitals signs as noted above General Appearance:Moderately built and nourished, no apparent distress Head: normocephalic, Atraumatic Eyes: normal inspection, EOMI Neck: supple, Trachea midline Respiratory/Chest: Normal breath sounds, CTA, No accessory muscle use Cardiovascular: S1, S2, No murmur Abdomen/GI:Soft, Non tender, Bowel sounds present Extremities/Musculoskeletal:normal inspection, no edema, Left Shoulder in Sling Neurologic/Psych:AAOX3, grossly no focal neurological deficits Skin: normal color, warm Results & Data Results & Data Vital Signs (Past 12 Hours) Vital Signs Temp Pulse Pulse Resp BP Pulse Ox O2 Del Method 02/25/23 10:08 36.5 C 66 82 17 130/76 94 02/25/23 07:26 36.5 C 82 17 130/76 94 Room Air 02/25/23 07:18 36.6 C 84 14 147/80 H 94 Room Air 02/25/23 04:00 36.6 C 72 18 127/76 97 Nasal Cannula O2 Flow Rate 02/25/23 10:08 02/25/23 07:26 02/25/23 07:18 02/25/23 04:00 3 Laboratory Results Short CBC 02/25/23 Range/Units 08:02 WBC 9.27 (4.8-10.8) K/ul Hgb 11.5 L (14.0-18.0) g/dl Hct 33.6 L (42.0-52.0) % Plt Count 175 (130-400) K/uL BMP 02/25/23 08:02 Sodium 139 Potassium 4.7 Chloride 111 H Carbon Dioxide 22 BUN 48 H Creatinine 2.37 H Glucose 158 H Calcium 8.3 L
[2023-02-25] MEDS ORDERED: APIXABAN 5 MG TABLET PO SCH (21:00)
== END 2023-02-25 11:03 | disposition home or self-care (01) ==
LOC: 3W 11:03 → ASU 11:03